=== PATIENT | female | born 1955 | race Caucasian/White ===

== ENCOUNTER 2016-08-11 17:18 | Inpatient (IN) | payer OTHER ==
[~2016-08-11] VITALS: Ht 160 cm; Wt 61.2 kg
[2016-08-11 17:55] LABS: BASOPHILS # (AUTO) 0.1 /CMM (0.0-0.2); BASOPHILS % (AUTO) 1.7 % (0.0-2.0); EOSINOPHILS % (AUTO) 0.1 % (0.0-6.0); HEMATOCRIT 43 % (33-45); HEMOGLOBIN 14.3 g/dL (11.5-14.8); LYMPHOCYTES # (AUTO) 1.2 /CMM (0.8-4.8); LYMPHOCYTES % (AUTO) 18.5 % (20.0-44.0); MEAN CORPUSCULAR HEMOGLOBIN 30 PG (26.0-33.0); MEAN CORPUSCULAR HGB CONC 33 g/dl (31.0-36.0); MEAN CORPUSCULAR VOLUME 89 fL (82-100); MONOCYTES # (AUTO) 0.6 /CMM (0.1-1.30); MONOCYTES % (AUTO) 8.6 % (2.0-12.0); NEUTROPHILS # (AUTO) 4.6 /CMM (1.8-8.9); NEUTROPHILS % (AUTO) 71.1 % (43.0-81.0); PLATELET COUNT (AUTO) 309 /CMM (150-450); RDW COEFFICIENT OF VARIATION 11.5 (11.5-15.0); RED BLOOD CELL COUNT(AUTO) 4.83 MIL/uL (4.0-5.2); WHITE BLOOD COUNT (AUTO) 6.5 K/uL (4.3-11.0)
--- NOTE | 2016-08-11 17:55 | NUR ---
PT BIB [facility] C/O ALTERED MENTAL STATUS AND CONFUSION INTERMITTENTLY X1 WEEK. NO NEURO DEFICITS NOTED. AMBULATORY WITH STEADY GAIT. DENIES PAIN. RESP EVEN UNLABORED. SKIN WARM NONDIAPHORETIC. PT A/OX4 BUT GETS EASILY CONFUSED AND OCCASIONALLY SEEMS TO BECOME DISORIENTED. IN ER BED 14.
[2016-08-11 18:11] LABS: ALANINE AMINOTRANSFERASE 69 U/L (12-78); ALBUMIN 3.5 g/dL (3.4-5.0); ALKALINE PHOSPHATASE 140 U/L (46-116); ASPARTATE AMINOTRANSFERASE 37 U/L (15-37); BILIRUBIN,TOTAL 0.2 mg/dL (0.2-1.0); CALCIUM, SERUM 8.9 mg/dL (8.5-10.1); CARBON DIOXIDE 32 mmol/L (21-32); CHLORIDE 107 mmol/L (98-107); CREATININE 0.8 mg/dL (0.6-1.3); GFR 73 mL/min (>60); GLUCOSE 112 mg/dL (74-106); POTASSIUM 3.9 mmol/L (3.5-5.1); SODIUM SERUM 143 mmol/L (136-145); TOTAL PROTEIN, SERUM 6.7 g/dL (6.4-8.2); UREA NITROGEN, BLOOD 20 mg/dL (7-18)
[2016-08-11 18:12] LABS: ACETAMINOPHEN < 2 ug/ml (10-30); SALICYLATE 2.4 mg/dL (2.8-20.0)
--- NOTE | 2016-08-11 18:29 | NUR ---
PT TRANSPORTED TO CT IN STABLE CONDITION. PT WENT TO THE RESTROOM BUT WAS UNABLE TO PROVIDE URINE SAMPLE.
[2016-08-11 19:26] LABS: APPEARANCE,URINE Clear (CLEAR); BILIRUBIN,URINE Negative (NEGATIVE); BLOOD, URINE Trace-intact Ery/uL (NEGATIVE); COLOR,URINE Yellow (YELLOW); KETONES,URINE Negative (NEGATIVE); LEUKOCYTE ESTERASE ,URINE Negative (NEGATIVE); NITRITE, URINE Negative (NEGATIVE); PH,URINE 7.5 (5.0-8.0); PROTEIN,URINE Negative (NEGATIVE); UGLUCOSE Negative (NEGATIVE); UROBILINOGEN,URINE 0.2 EU/dL (0.2)
[2016-08-11 19:33] LABS: CANNABINOID, URINE NEGATIVE (NEGATIVE); PHENCYCLIDINE SCREEN,URINE NEGATIVE (NEGATIVE)
[2016-08-11 19:36] LABS: ADD URINE CULTURE NO; BACTERIA,URINE Rare /HPF (None Seen); SQUAMOUS EPITHELIAL CELL,UR Few /HPF (None Seen); WBC,URINE NONE SEEN /HPF (0-3)
--- NOTE | 2016-08-11 20:23 | NUR ---
CALLED NURSING SUP. FOR TELE BED
--- NOTE | 2016-08-11 20:36 | NUR ---
JESUS GARZA, BECCA LAW NP ELECTRONIC WIRER
[2016-08-11] MEDS ORDERED: VALS40TA4 PO (20:56)
--- NOTE | 2016-08-11 20:58 | NUR ---
REPORT GIVEN TO [facility]BBOTT FOR ADMISSION
--- NOTE | 2016-08-11 21:45 | NUR ---
LOW RAW SUGAR CUTTER TO ROOM 119-2 PT RECEIVED VIA GURNEY . PT AWAKE AND ALERT X 4 . PT ABLE TO AMBULATE. EXTREMITIES WNL . NIHSS SCORE 0. PT IS CONFUSED AT TIMES. PT IS ALSO FORGETFUL AT TIMES AND CANNOT REMEMBER CERTAIN WORDS. NO SOB ON ROOM AIR. SATURATING WELL . PT ABLE TO SWALLOW WITHOUT DIFFICULTY. LAC INTACT AND PATENT. PT WANTS TO KEEP ALL BELONGINGS AT BEDSIDE. WILL CONT TO MONITOR FOR CHANGES IN NEURO STATUS .
--- NOTE | 2016-08-11 21:47 | NUR ---
PT TRANSPORTED TO RM 119-2 IN STABLE CONDITION VIA ACLS PROTOCOL
[2016-08-11 22:04] VITALS: BP 175/100
[2016-08-11] MEDS ORDERED: ONDANSETRON HCL/PF 4 MG/2 ML VIAL IVP PRN (22:30)
[2016-08-11] MEDS ORDERED: ACETAMINOPHEN 325 MG TABLET PO PRN (22:30)
[2016-08-11] MEDS ORDERED: MAGNESIUM HYDROXIDE 30 ML UDC PO PRN (22:30)
[2016-08-11] MEDS ORDERED: HYDROCODONE/APAP 5/325MG 1 EACH TABLET PO PRN (22:30)
[2016-08-11] MEDS ORDERED: hydrALAZINE HCL 10 MG TABLET PO PRN (23:00)
--- NOTE | 2016-08-11 23:00 | NUR ---
RN PT PULLED OUT IV ACCESS . TWO NEW IV ACCESS'S INSERTED . LFA AND RFA G20 .
[2016-08-11] MEDS ORDERED: hydrALAZINE HCL 10 MG TABLET ONE (23:04)
--- NOTE | 2016-08-11 23:30 | NUR ---
SCAR LAW FASHION PHOTOGRAPHER AT BEDSIDE TO ASSESS PT.
[2016-08-12] VITALS (9 sets, daily range): BP systolic 144–160; BP diastolic 63–103
[2016-08-12 08:03] LABS: INR 0.92 (0.87-1.13); PROTHROMBIN TIME 9.8 SECS (9.5-12.7)
[2016-08-12 08:12] LABS: THYROID STIMULATING HORMONE 2.378 uIU/mL (0.358-3.74)
[2016-08-12 08:28] LABS: BASOPHILS % (AUTO) 0.6 % (0.0-2.0); EOSINOPHILS % (AUTO) 0.1 % (0.0-6.0); HEMATOCRIT 43 % (33-45); HEMOGLOBIN 14.5 g/dL (11.5-14.8); LYMPHOCYTES # (AUTO) 1.5 /CMM (0.8-4.8); LYMPHOCYTES % (AUTO) 22.6 % (20.0-44.0); MEAN CORPUSCULAR HEMOGLOBIN 30 PG (26.0-33.0); MEAN CORPUSCULAR HGB CONC 34 g/dl (31.0-36.0); MEAN CORPUSCULAR VOLUME 89 fL (82-100); MONOCYTES # (AUTO) 0.6 /CMM (0.1-1.30); MONOCYTES % (AUTO) 9.1 % (2.0-12.0); NEUTROPHILS # (AUTO) 4.5 /CMM (1.8-8.9); NEUTROPHILS % (AUTO) 67.6 % (43.0-81.0); PLATELET COUNT (AUTO) 301 /CMM (150-450); RDW COEFFICIENT OF VARIATION 12.1 (11.5-15.0); RED BLOOD CELL COUNT(AUTO) 4.84 MIL/uL (4.0-5.2); WHITE BLOOD COUNT (AUTO) 6.6 K/uL (4.3-11.0)
[2016-08-12] MEDS ORDERED: VALSARTAN 40 MG TABLET PO SCH (09:00)
[2016-08-12 09:13] LABS: CALCIUM, SERUM 8.6 mg/dL (8.5-10.1); CREATININE 0.8 mg/dL (0.6-1.3); MAGNESIUM 1.8 mg/dL (1.8-2.4); PHOSPHORUS 3.9 mg/dL (2.5-4.9); POTASSIUM 3.6 mmol/L (3.5-5.1)
[2016-08-12] MEDS: PANTOPRAZOLE 40 MG TABLET.DR PO SCH (09:40)
--- NOTE | 2016-08-12 11:05 | NUR ---
NIHSS SCALE DONE W/ DR. HODGE AT BEDSIDE EVALUATED PT. ,WILL INCREASE DIOVAN PER MD.NIHSSS SCALE INSIGNIFICANT 0,WILL CONTINUE TO MONITOR.
[2016-08-12] MEDS ORDERED: VALSARTAN 40 MG TABLET PO ONE (11:30)
[2016-08-12] MEDS: IV NS 0.9% 1,000 ML IV PRN ×2 (11:37→23:21)
[2016-08-12] MEDS: POTASSIUM CHLORIDE 20 MEQ TAB.PRT.SR PO SCH ×3 (11:37→13:57)
[2016-08-12] MEDS: ENOXAPARIN SODIUM 40 MG/0.4 ML DISP.SYRIN SQ SCH (11:40)
[2016-08-12] MEDS ORDERED: hydrALAZINE HCL 25 MG TABLET PO PRN (13:00)
--- NOTE | 2016-08-12 14:08 | NUR ---
pt. went for mri as ordered.
--- NOTE | 2016-08-12 17:42 | NUR ---
EEG AT BEDSIDE ,IV ACCIDENTALLY PULLED OUT,WILL REINSERT ONCE EEG DONE.
--- NOTE | 2016-08-12 18:29 | NUR ---
EEG COMPLETED,PT. VERBALIZED WOULD LIKE TO EAT FIRST PRIOR TO IV REINSERTION,WILL ENDORSED TO NIGHT RN.
--- NOTE | 2016-08-12 20:00 | NUR ---
RN INITIAL NOTES RECEIVED PT AWAKE SITTING ON BED. A/O X4, ABLE TO AMBULATE WITH WALKER AND ON A STEADY GAIT. ON ROOM AIR SATURATING WELL. DENIES ANY PAIN OR NAUSEA. PT IS CONTINENT AND USES THE BATHROOM NEEDED. THERE IS NO IV ACCESS IT HAD BEEN PULLED OUT, WILL INITIATE A NEW ONE. BED LOCKED AND LOW, SIDERAILS UP, CALL LIGHT WITHIN REACH. WILL MONITOR
[2016-08-12] MEDS ORDERED: ATORVASTATIN 10 MG TABLET PO SCH (22:00)
[2016-08-13 04:00] VITALS: BP 130/101
[2016-08-13] MEDS: IV NS 0.9% 1,000 ML IV PRN (05:42)
--- NOTE | 2016-08-13 06:30 | NUR ---
RN CLOSING NOTES PT REMAINS STABLE OF THE MOMENT. ALL DUE MEDS GIVEN, AM CARE PROVIDED. WILL ENDORSE TO AM RN
[2016-08-13 07:03] LABS: ALBUMIN 3.2 g/dL (3.4-5.0); BILIRUBIN,TOTAL 0.4 mg/dL (0.2-1.0); CALCIUM, SERUM 8.6 mg/dL (8.5-10.1); CREATININE 0.7 mg/dL (0.6-1.3); MAGNESIUM 1.9 mg/dL (1.8-2.4); PHOSPHORUS 3.3 mg/dL (2.5-4.9); POTASSIUM 3.9 mmol/L (3.5-5.1); TOTAL PROTEIN, SERUM 6.4 g/dL (6.4-8.2)
--- NOTE | 2016-08-13 07:35 | NUR ---
RN INITIAL NOTES: Received patient on bed during rounds, awake, alert and oriented x4, able to make needs known, needs anticipated and attended. With IV Plug over LFA G22 flushed with NS and patent SL on IVF infusing well NS at 125cc/hr. HOB elevated, aspiration precaution observed. NO SOB, No LOC, respirations are even and unlabored, no acute distress noted. Kept clean and dry. Provided safety and comfort measures. Bed low and locked position, fall precaution observed. No signs and symptoms of discomfort noted.To continue to monitor accordingly.
[2016-08-13 07:53] LABS: HEMATOCRIT 42 % (33-45); HEMOGLOBIN 14.1 g/dL (11.5-14.8); LYMPHOCYTES % (AUTO) 26.2 % (20.0-44.0); MEAN CORPUSCULAR HEMOGLOBIN 30 PG (26.0-33.0); MEAN CORPUSCULAR HGB CONC 34 g/dl (31.0-36.0); MEAN CORPUSCULAR VOLUME 89 fL (82-100); NEUTROPHILS % (AUTO) 61.9 % (43.0-81.0); PLATELET COUNT (AUTO) 266 /CMM (150-450); RDW COEFFICIENT OF VARIATION 12.1 (11.5-15.0); RED BLOOD CELL COUNT(AUTO) 4.76 MIL/uL (4.0-5.2); WHITE BLOOD COUNT (AUTO) 6.3 K/uL (4.3-11.0)
[2016-08-13 07:54] LABS: BASOPHILS % (AUTO) 0.6 % (0.0-2.0); EOSINOPHILS % (AUTO) 0.1 % (0.0-6.0); LYMPHOCYTES # (AUTO) 1.6 /CMM (0.8-4.8); MONOCYTES # (AUTO) 0.7 /CMM (0.1-1.30); MONOCYTES % (AUTO) 11.2 % (2.0-12.0); NEUTROPHILS # (AUTO) 3.9 /CMM (1.8-8.9)
[2016-08-13 08:00] VITALS: BP 167/71
[2016-08-13] MEDS: PANTOPRAZOLE 40 MG TABLET.DR PO SCH (08:43)
[2016-08-13] MEDS: ENOXAPARIN SODIUM 40 MG/0.4 ML DISP.SYRIN SQ SCH (08:47)
[2016-08-13] MEDS ORDERED: VALSARTAN 40 MG TABLET PO SCH ×2 (09:00→17:00)
[2016-08-13] MEDS ORDERED: GADOVERSETAMIDE 5 MMOL/10 ML VIAL IJ ONE (11:00)
[2016-08-13 12:00] VITALS: BP 143/77
--- NOTE | 2016-08-13 14:36 | NUR ---
RN NOTES: Seen and examined by Dr. Cuevas and with orders noted and carried out. For dc today as patients request.
--- NOTE | 2016-08-13 15:47 | NUR ---
RN NOTES: Dc paper forms explained to patient, signed and verbalized understanding of home instructions. Instructed patient to call PCP for appointment and to monitor BP at home. Patient left the unit at this time in stable condition, no pain or discomfort noted, accompanied by GLUER AND WEDGER to lobby, via wheelchair, taking taxi voucher.
== END 2016-08-13 15:47 | disposition home or self-care (01) | DRG 79 ==
LOC: ER 17:20 → TELE1 21:40 → MEDSG1 08-12 14:17
PROVIDERS: ADMIT Nurse Practitioner Acute Care; ATTEND Nurse Practitioner Acute Care
DX: I67.4 Hypertensive encephalopathy (principal); I10 Essential (primary) hypertension; M50.30 Other cervical disc degeneration, unspecified cervical region; E78.1 Pure hyperglyceridemia
CPT/HCPCS: 36415; 70450-TC; 70553-TC; 71010-TC; 76700-TC; 80048-TC; 80053-TC; 80061-TC; 80076-TC; 80305; 81000-TC; 83690-TC; 83735-TC; 84100-TC; 84443-TC; 85025-TC; 85610-TC; 85730-TC; 87081-TC; 87086-TC; 93307-TC; 93880-TC; 95819-TC; 97001-TC; 97116-TC; 97530-TC; A9579; G0480; G6039-TC; J1650; J7030; Z7610